=== PATIENT | female | born 1980 | race Caucasian/White ===

== ENCOUNTER → 2017-02-19 | Outpatient (REF) ==
--- NOTE | 2017-02-19 16:49 | REP ---
Left hip series: Two views. History: Pain. Findings: AP and frog-leg views of the left hip demonstrate smooth rounded femoral head and intact hip joint space. Periarticular soft tissues are unremarkable. No evidence of arthropathy or other significant abnormality. Impression: Negative views left hip. Signed by Prabhjot Esqueda MD 02/20/2017 09:23 A
--- NOTE | 2017-02-19 16:55 | REP ---
Lumbar spine series: Four views. History: Low back pain. No comparison imaging. Findings: AP and lateral views demonstrate mild disc space narrowing at L4-5. Lumbar vertebral body heights are preserved. Alignment is normal. Disc spaces are otherwise intact. Umbilical jewelry is noted incidentally on one of the AP views. Pedicles and posterior elements are intact. There is no evidence of spondylolysis or spondylolisthesis. Impression: Minimal disc space narrowing at L4-5, otherwise negative. Signed by Prabhjot Esqueda MD 02/20/2017 09:23 A
== END ==
LOC: M SMT 13:53
PROVIDERS: ATTEND Internal Medicine
DX: Z02.71 Encounter for disability determination (principal); M51.36 Other intervertebral disc degeneration, lumbar region